=== PATIENT | male | born 1950 | race Caucasian/White ===

== ENCOUNTER 2025-01-31 09:49 | Outpatient (REF) | payer MEDICARE, SELFPAY ==
--- OUTSIDE RECORDS SUMMARY | 2025-01-31 10:13 | XMS_ITS | Clinical Summary ---
Author Organization [address] [place] [address] Address [facility] [place] [address] Phone Care Team Providers Care Medical Genetics Director Name Role Phone Physician, No Pcp Primary Care Provider Unavaila ble Allergies No known active allergies Medications azithromycin (ZITHROMAX) 250 mg tablet Take by mouth See administration instructions. Active amLODIPine (NORVASC) 5 mg tablet Active Active Problems No known active problems Social History Tobacco Use Types Packs/Day Years Used Date Smoking Tobacco: Never Assessed Sex and Gender Information Value Date Recorded Sex Assigned at Not on file Legal Sex Male 4:00 PM EST Gender Identity Not on file Sexual Orientation Not on file Obstetrics History Last Filed Vital Signs Vital Sign Reading Time Taken Comments Blood Pressure 165/93 08/18/2024 9:14 AM EST Pulse 79 08/18/2024 9:14 AM EST Temperature 36.3 ??C (97.4 ??F) 08/18/2024 9:14 AM ES T Respiratory Rate - - Oxygen Saturation 98% 08/18/2024 9:14 AM EST Inhaled Oxygen Concentration - - Weight - - Height - - Body Mass Index - - Plan of Treatment Health Maintenance Due Date Last Done Comments DTaP,Tdap,and Td Vaccines (1 - Tdap) 12/01/1970 Abdominal Aortic Aneurysm (AAA) Screen 08/17/2024 Cholesterol Screening (Lipid Panel) 08/17/2024 Colorectal Cancer Screening: Colonoscopy 08/17/2024 Depression Screening 08/17/2024 Falls Risk Assessment 08/17/2024 Hepatitis C Screening 08/17/2024 Medicare Annual Wellness Visit 08/17/2024 Social Influencers of Health Screening 08/17/2024 Hypertension/CHF/CAD Annual BMP Blood Test 08/18/2024 COVID-19 Vaccine ( season) 2024 06/11/2024, 06/23/2022, 03/24/2022, Additional history exists RSV Immunization Adult Patients (1 - 1-dose 75+ series) 12/01/2026 Zoster Vaccines Completed 03/24/2022, 11/2021, 03/11/2013 Pneumococcal Vaccine: 50+ Years Completed 05/30/2022 Influenza Vaccine Completed 06/11/2024, , 10/14/2021, Additional history exists HIB Vaccines Aged Out No longer eligi ble based on patient's age to complete this topic HPV Vaccines Aged Out No longer eligi ble based on patient's age to complete this topic Hepatitis A Vaccines Aged Out No long er eligible based on patient's age to complete this topic Hepatitis B Vaccines Aged Out No long er eligible based on patient's age to complete this topic IPV Vaccines Aged Out No longer eligi ble based on patient's age to complete this topic MMR Vaccines Aged Out No longer eligi ble based on patient's age to complete this topic Meningococcal ACWY Vaccine Aged Out N o longer eligible based on patient's age to complete this topic Meningococcal B Vaccine Aged Out No l onger eligible based on patient's age to complete this topic RSV Immunization Patients Under 20 months Aged Out No longer eligible based on patient's age to complete this topic Varicella Vaccines Aged Out No longer eligible based on patient's age to complete this [place] [id number] [employer] Care Teams Medical Genetics Director Relationship Specialty Start Date End Date Physician, No Pcp PCP - General 08/17/24
[2025-01-31 14:20] LABS: MANUAL DIFF FLAG NO
[2025-01-31 14:27] LABS: Basophils Absolute Auto 0.1 X10*3/uL (0.0-0.2); Basophils Percent Auto 0.8 % (0-2); Eosinophils Absolute Auto 0.6 X10*3/uL (0.0-0.4); Eosinophils Percent Auto 6.5 % (0-4); Hematocrit 43.6 % (42.0-52.0); Imm Gran Abs Auto 0.03 X10*3/uL (0.00-0.03); Imm Gran Pct Auto 0.3 % (0.0-0.4); Lymphocytes Absolute Auto 2.1 X10*3/uL (1.2-4.9); Lymphocytes Percent Auto 23.7 % (20-40); Mean Corpuscular HGB Conc 34.4 g/dl (31.0-36.0); Mean Corpuscular Hemoglobin 30.4 pg (27.0-33.0); Mean Corpuscular Volume 88.4 fL (80.0-98.0); Mean Platelet Volume 10.4 fL (9.4-12.4); Monocytes Absolute Auto 0.9 X10*3/uL (0.1-1.2); Monocytes Percent Auto 10.1 % (2-11); Neutrophils Absolute Auto 5.2 x10*3/uL (2.0-8.3); Neutrophils Percent Auto 58.6 % (45-73); Platelet Count 289 X10*3/uL (160-400); Red Blood Count 4.93 X10*6/uL (4.60-5.80); Red Cell Distribution Width 13.1 % (11.0-16.0); White Blood Count 8.8 X10*3/uL (4.8-10.8)
[2025-01-31 14:34] LABS: Estimated Average Glucose 114 mg/dL; Hemoglobin A1C 147.7964 umol/L; Hemoglobin A1c % 5.6 % (<6.0); Total Hemoglobin (HGBA1C) 3902.0289 umol/L
[2025-01-31 14:58] LABS: PSA,Total (Free>4and<10) 0.59 ng/mL (0.00-4.00)
[2025-01-31 15:01] LABS: Albumin Level 4.5 g/dL (3.5-5.0); Alkaline Phosphatase 70 U/L (39-117); Anion Gap 10 (12-20); Aspartate Amino Transferase 31 U/L (5-37); Bilirubin Total 0.5 mg/dL (0.0-1.0); Blood Urea Nitrogen 16 mg/dL (9-16); Calcium 9.7 mg/dL (8.4-10.2); Carbon Dioxide 27 mmol/L (22-29); Chloride 109 mmol/L (96-108); Cholesterol 172 mg/dL (<200); Estimated Glomerular Filt Rate > 60; Glucose Random 115 mg/dL (60-115); HDL Cholesterol 31 mg/dL (>40); LDL Cholesterol Calculated 90 mg/dL (<100); Sodium 141 mmol/L (135-145); Total Protein 7.4 g/dL (6.5-8.0); Triglycerides 258 mg/dL (<150)
[2025-01-31 15:12] LABS: Alanine Aminotransferase 35 U/L (0-40); TSH reflex Free T4 2.59 uIU/mL (0.32-4.0)
== END 2025-01-31 09:50 | disposition home or self-care (01) ==
LOC: HO.CHCLDS 09:49
PROVIDERS: Visit Provider Internal Medicine
DX: I10 Essential (primary) hypertension (principal); Z12.5 Encounter for screening for malignant neoplasm of prostate; Z13.1 Encounter for screening for diabetes mellitus
CPT/HCPCS: 36415; 80053; 80061; 83036; 84153; 84443; 85025